=== PATIENT | male | born 1975 | race Caucasian/White ===

== ENCOUNTER 2023-07-18 07:50 | Outpatient (CLI) | payer OTHER, SELFPAY ==
--- NOTE | ~2023-07-18 | XR_ITS ---
Left foot Technique: AP, oblique, and lateral views were obtained. Clinical History: Pain Findings: No acute fracture or dislocation is seen. There is mild degenerative change of the first MT P joint. Remaining joint spaces are preserved. Soft tissues are unremarkable. Impression: Mild degenerative change of the first MTP joint. Reviewed, dictated and finalized at [facility]. RTER LAUNDRY Impression: Mild degenerative change of the first MTP joint.
== END 2023-07-18 07:51 | disposition home or self-care (01) ==
LOC: CHSIMG 07:53
PROVIDERS: Visit Provider Orthopaedic Surgery
DX: M79.672 Pain in left foot (principal)
CPT/HCPCS: 73630

== ENCOUNTER 2023-12-02 01:49 | Day surgery (SDC) | payer OTHER, SELFPAY ==
[2023-11-17 08:34] VITALS: BMI 29.0
[2023-12-02 10:21] VITALS: BP 125/86; PULSE 82; RESP 16; TEMP 36.3; O2SAT 97
[2023-12-02] MEDS: LACTATED RINGERS 1,000 ML 150 ML IV CONT (10:31)
--- NOTE | 2023-12-02 11:29 | P.PNAN_ITS ---
Anes - Initial Pre Proc Eval Procedure: Operation Date: 12/02/23 11:30 Proposed Procedures p Screening Colonoscopy - Nato Stacy MD Date/Time: 12/02/23 11:29 Surgeon: Nato Stacy MD Pre Op Diagnosis: neoplasm screening Patient Data Age: 48 Gender: M Height: 1.83 m Weight: 93 kg Last Vital Signs Temp 97.4 F L 12/02/23 10:21 Pulse 82 12/02/23 10:21 Resp 16 12/02/23 10:21 BP 125/86 12/02/23 10:21 Pulse Ox 97 12/02/23 10:21 O2 Del Method Room Air 12/02/23 10:21 Allergies Allergy/AdvReac Type Severity Reaction Status Date / Time No Known Allergies Allergy Unknown Verified 12/02/23 10:20 Home Medications Medication Instructions Recorded Confirmed Type lisinopril 20 mg tablet 20 mg PO DAILY #90 tabs 09/23/23 11/17/23 Rx Patient hx anesthesia problems: none Family hx anesthesia problems: none Results Review: All pre-operative results and documents have been reviewed as part of the pre- operative evaluation. [facility] Past Medical History Medical History Abnormal liver enzymes Abnormal liver function tests Essential (primary) hypertension Mixed hyperlipidemia Plantar fascial fibromatosis of left foot Prediabetes Family History Family History Other Diabetes mellitus Family history of cardiovascular disease Hypertension Social History Social History (Updated 09/23/23 @ 16:22 by Sabina Velasquez MA) Smoking status: Never smoker Alcohol intake: current Alcohol use details: Weekends Substance use: never Substance use type: does not use Do You Feel Safe in your Home?: Yes Lack of Transportation: No Lack of Food: Never True Current Housing: I Have Housing Concerned About Future Housing: No Difficulty Paying Gas/Electric Bills: No Difficulty Paying for Meds: No Currently Unemployed: No Education: Associate Degree Living arrangements: with family Occupation/Education: occupation Gender identity (if verbalized by the patient): Male Sexual Orientation (if Verbalized by the Patient): Straight or Heterosexual Spiritual care concerns: No Anes - Eval Final PreProcedure Day of Procedure 12/02/23 11:29 Patient weight: normal Heart: regular rate and rhythm Lungs: clear to auscultation Airway: Mallampati scale class II Neurological: alert and oriented Last oral intake: >/= 8 hours ASA classification: III Emergent: no Anesthetic plan: proceed Anesthesia type and monitoring: general GIVS and standard monitoring Results Review: All pre-operative results and documents have been reviewed as part of the pre- operative evaluation. Informed Consent: The patient's anesthetic plan and its attendant risks and benefits were discussed with the patient/family/POA. Questions were solicited and answers provided to the satisfaction of the patient/family/POA.
--- NOTE | 2023-12-02 11:40 | PM.HPGS ---
History of Present Illness History of Present Illness Consent: Risks, benefits, and alternatives have been discussed and questions answered. Patient agrees to proceed with procedure. Chief complaint: neoplasm screening Narrative: Fabrizio Welch is a 48 year old male here for first screening colonoscopy Review of Systems Review of Systems: All systems reviewed & are unremarkable except as noted in HPI and below PMFSH Past Medical History Medical History (Updated 12/02/23 @ 11:40 by Nato Stacy MD) Abnormal liver enzymes Abnormal liver function tests Colon cancer screening Essential (primary) hypertension Mixed hyperlipidemia Plantar fascial fibromatosis of left foot Prediabetes Family History Family History Other Diabetes mellitus Family history of cardiovascular disease Hypertension Social History Social History (Updated 09/23/23 @ 16:22 by Sabina Velasquez MA) Smoking status: Never smoker Alcohol intake: current Alcohol use details: Weekends Substance use: never Substance use type: does not use Do You Feel Safe in your Home?: Yes Lack of Transportation: No Lack of Food: Never True Current Housing: I Have Housing Concerned About Future Housing: No Difficulty Paying Gas/Electric Bills: No Difficulty Paying for Meds: No Currently Unemployed: No Education: Associate Degree Living arrangements: with family Occupation/Education: occupation Gender identity (if verbalized by the patient): Male Sexual Orientation (if Verbalized by the Patient): Straight or Heterosexual Spiritual care concerns: No Meds Home Medications and Allergies Home Medications Medication Instructions Recorded Confirmed Type lisinopril 20 mg tablet 20 mg PO DAILY #90 tabs 09/23/23 11/17/23 Rx Allergies Allergy/AdvReac Type Severity Reaction Status Date / Time No Known Allergies Allergy Unknown Verified 12/02/23 10:20 Vital Signs Vital Signs - 24 hr 12/02/23 10:21 Temperature 97.4 F L Pulse Rate 82 Respiratory Rate 16 Blood Pressure 125/86 Pulse Oximetry 97 Oxygen Delivery Room Air Exam Const: General: comfortable and no acute distress HENMT: Face/Nose/Sinus: Normal nares present Eyes: General: appearance normal, both eyes and all related structures Neck: Neck: no JVD Resp: Auscultation: clear to auscultation bilaterally Cardio: Rate: regular rate Rhythm: regular rhythm GI: Inspection: non-distended GI Palp: Yes Soft to palpation Skin: General skin exam: normal color Neuro: General: gait normal Speech: normal speech Extrem: General: normal to inspection Psych: Mental Status: mental status grossly normal Assessment and Plan Assessment and plan (1) Colon cancer screening: Code(s): Z12.11 - Encounter for screening for malignant neoplasm of colon Status: Acute Assessment and Plan: colonoscopy
[2023-12-02 11:57] VITALS: BP 106/73; PULSE 88; RESP 13; O2SAT 98
[2023-12-02 12:07] VITALS: BP 106/78; PULSE 76; RESP 16; O2SAT 97
[2023-12-02 12:17] VITALS: BP 116/85; PULSE 70; RESP 17; O2SAT 97
== END 2023-12-02 12:19 | disposition home or self-care (01) ==
PROVIDERS: PCP Family Medicine; Visit Provider Internal Medicine Gastroenterology
PROC: 0DJD8ZZ Inspection of Lower Intestinal Tract, Via Natural or Artificial Opening Endoscopic (ICD-10-PCS; CPT 45378; principal; 2023-12-02 11:30)
DX: Z12.11 Encounter for screening for malignant neoplasm of colon (principal); K63.5 Polyp of colon; K64.8 Other hemorrhoids; I10 Essential (primary) hypertension
CPT/HCPCS: 45385; 88305; J2704; J7120

== ENCOUNTER 2025-01-21 21:40 | Emergency (ER) | payer OTHER, SELFPAY ==
--- NOTE | ~2025-01-21 | CT_ITS ---
CLINICAL INDICATION: Periumbilical pain COMPARISON: None. TECHNIQUE: Multiple contiguous axial images of the abdomen and pelvis were performed following the ad ministration of with 100 mL Omnipaque-350 intravenous contrast The dose-length product (DLP) was 569.78 mGy-cm. Automated exposure control and iterative reconstruction technique were employed. FINDINGS/OBSERVATIONS: Visualized lower thorax: The bilateral lung bases are clear. The heart is of normal size, without pericardial effusion. Small hiatal hernia is present. Liver: The liver demonstrates homogeneous enhancement and is not enlarged. Gallbladder and biliary system: The gallbladder is only minimally distended, and otherwise unremarkable. Pancreas: The pancreas enhances homogeneously without ductal dilatation. Spleen: The spleen enhances homogeneously and is not enlarged . Kidneys: The bilateral kidneys enhance symmetrically without hydronephrosis or renal calculi. Adrenal glands: Unremarkable. Gastrointestinal tract: Fecal stasis within the colon. Appendix: The appendix is fluid-filled, and hyperemic with surrounding inflammatory change. The caliber of the appendix is increased measuring 12 mm. No free fluid or free air is identified. Vasculature: Unremarkable. Lymph nodes: No pathologically enlarged or morphologically suspicious lymph nodes within the retroperitoneum or at the root of the mesentery. Pelvic structures: The bladder is only minimally distended, and otherwise unremarkable. The prostate gland is not enlarged. Body wall and musculoskeletal: No significant degenerative disease within the lower thoracic or lumbosacral spine. IMPRESSION: Acute appendicitis without perforation. Reviewed, dictated and finalized at location A.
[2025-01-21 21:42] VITALS: BP 158/100; PULSE 94; RESP 18; TEMP 36.7; O2SAT 100
--- NOTE | 2025-01-21 21:42 | PC.NURSE ---
Pt triaged in waiting room, VSS pt c/o abd pain w/ severe n/v that started about 5 pm tonight.
[2025-01-21] MEDS: ONDANSETRON INJ 4 MG/2 ML VIAL IV PUSH (22:19)
[2025-01-21] MEDS: MORPHINE SULFATE (*CRX) 2 MG/ML INJ IV PUSH (22:19)
[2025-01-21] MEDS: SODIUM CHLORIDE 0.9% IV 1,000 ML 999 ML IV CONT (22:23)
[2025-01-21 22:26] VITALS: O2SAT 98
[2025-01-21 22:26] LABS: Basophils Absolute Auto 0.02 K/mm3 (0.00-0.10); Basophils Percent Auto 0.2 % (0.0-1.0); Eosinophils Absolute Auto 0.01 K/mm3 (0.02-0.50); Eosinophils Percent Auto 0.1 % (1.0-6.0); Hematocrit 51.9 % (40.0-54.0); Hemoglobin 18.4 g/dL (14.0-18.0); Immature Granulocyte Absolute 0.05 K/mm3 (0.00-0.00); Immature Granulocyte Percent A 0.4 % (0.0-0.0); Lymphocytes Absolute Auto 0.85 K/mm3 (1.10-4.50); Lymphocytes Percent Auto 6.4 % (18.0-42.0); Mean Corpuscular HGB Conc 35.5 g/dL (32-36); Mean Corpuscular Hemoglobin 31.2 pg (27.0-31.0); Mean Platelet Volume 9.5 fl (8.7-11.0); Neutrophils Absolute Auto 11.94 K/mm3 (1.70-7.20); Neutrophils Percent Auto 89.9 % (50.0-70.0); Platelet Count Result 245 K/mm3 (150-420); Red Cell Distribution Width 11.7 % (11.6-14.4); White Blood Count 13.3 K/mm3 (4.8-10.8)
[2025-01-21 22:30] VITALS: O2SAT 96
[2025-01-21 22:31] VITALS: BP 169/93; O2SAT 95
[2025-01-21 22:38] LABS: Alanine Aminotransferase 29 U/L (6-50); Albumin Level 4.6 g/dL (3.5-5.1); Alkaline Phosphatase 67 U/L (38-126); Anion Gap 10 mmol/L (4-12); Aspartate Amino Transferase 30 U/L (17-59); Bilirubin,Total 1.9 mg/dL (0.2-1.3); Blood Urea Nitrogen 13 mg/dL (9-20); Calcium 9.9 mg/dL (8.4-10.2); Carbon Dioxide 23 mmol/L (22-30); Chloride 103 mmol/L (98-107); Estimated CRCL calculation 87 ml/min; Estimated Glomerular Filt Rate > 60; Glucose 148 mg/dL (65-110); Lipase 166 U/L (23-300); Osmolality Calculated 285 mOsm/kg (285-295); Potassium 3.6 mmol/L (3.4-5.0); Sodium 136 mmol/L (137-145); Total Protein 7.5 g/dL (6.3-8.2)
[2025-01-21 22:39] LABS: Lactic Acid Reflex 2.1 mmol/L (0.4-2.0)
[2025-01-21 22:40] LABS: Partial Thromboplastin Time 25.9 Sec (23.9-30.70)
[2025-01-21 23:07] VITALS: BP 180/89; PULSE 88; RESP 20; O2SAT 94
[2025-01-21 23:16] VITALS: BP 166/84; O2SAT 97
--- NOTE | 2025-01-21 23:51 | PC.NURSE ---
Pt resting comfortable at this time, he reports no pain anymore and feeling better. Dr Nazario in to discuss POC for transfer about CT report results.
--- NOTE | 2025-01-21 23:55 | ED.ABDPAIN ---
HPI - Abdominal Pain General Chief Complaint: Abdominal Pain Stated Complaint: Vomiting Time Seen by Provider: 01/21/25 21:55 Source: patient and family Mode of arrival: ambulatory Limitations: no limitations History of Present Illness HPI narrative: patient is a 49-year-old male with right lower quadrant pain for the past day and specifically the past few hours since about 5:00 p.m.. He has associated nausea vomiting. No diarrhea. He has no prior surgeries of the abdomen. last meal was at 5:00 p.m.. patient is on Ozempic without recent changes. MD elicited complaint: abdominal pain Pertinent past history: other ( Hypertension) Onset (ago): hour(s) ( 5) Pain Consistency: constant Location: epigastric, periumbilical and RLQ Severity: severe Pain scale (0-10): 10 Quality: sharp Radiation: none Migration to: no migration Exacerbating factors: movement Relieving factors: nothing Context: confirms other ( patient is here with right lower quadrant and mid abdomen pain for the past 5 hours) Associated symptoms: nausea and vomiting Treatments prior to arrival: other ( none) Related Data Home Medications ?Medication ?Instructions ?Recorded ?Confirmed ?Last Taken ?Type lfqjhrak-huc-gfdtw acid 200 tablet PO DAILY 09/24/24 09/24/24 Unknown History mcg-vit K1 60 mcg-lycopene 600 mcg tablet (Men's Multivitamin) omega 0-oqy-dug-fish oil 1,000 mg 1 cap PO DAILY 09/24/24 09/24/24 Unknown History (120 mg-180 mg) capsule (Fish Oil) semaglutide 1 ml subcut .once a week 09/24/24 Unknown History testosterone cypionate 100 mg/mL 35 mg IM .twice a week 09/24/24 09/24/24 Unknown History intramuscular oil (Depo-Testosterone) Allergies Allergy/AdvReac Type Severity Reaction Status Date / Time No Known Allergies Allergy Unknown Verified 09/24/24 15:04 Review of Systems Review of Systems: All systems reviewed & are unremarkable except as noted in HPI and below Constitutional: Constitutional: Reports no additional constitutional complaints Eyes: Eyes: Reports no additional eye complaints ENT: Reports system reviewed and no additional complaints, except as documented Cardiovascular: Cardiovascular: Reports no additional cardiovascular complaints Respiratory: Respiratory: Reports no additional respiratory complaints Gastrointestinal: Gastrointestinal: Reports no additional gastrointestinal complaints Genitourinary: Genitourinary: Reports no additional male genitourinary complaints Musculoskeletal: Musculoskeletal: Reports no additional musculoskeletal complaints Integumentary/Breasts: Skin/Breast: Reports system reviewed and no additional complaints, except as docu Neurologic: Reports system reviewed and no additional complaints, except as documented Psychiatric: Psychiatric: Reports no additional psychiatric complaints Endocrine: Endocrine: Reports no additional endocrine complaints Hematologic/Lymphatic: Hematologic/Lymphatic: Reports no additional hematologic/lymphatic complaints Allergic/Immunologic: Allergic/Immunologic: Reports no additional allergic/immunologic complaints [facility] Past Medical History Medical History Personal history of colonic polyps Plantar fascial fibromatosis of left foot Abnormal liver function tests Abnormal liver enzymes Prediabetes Mixed hyperlipidemia Essential (primary) hypertension Family History Family History Other Diabetes mellitus Family history of cardiovascular disease Hypertension Social History Social History Smoking status: Never smoker Alcohol intake: current Alcohol use details: Weekends Substance use: never Substance use type: does not use Do You Feel Safe in your Home?: Yes Lack of Transportation: No Lack of Food: Never True Current Housing: I Have Housing Concerned About Future Housing: No Difficulty Paying Gas/Electric Bills: No Difficulty Paying for Meds: No Currently Unemployed: No Education: Associate Degree Living arrangements: with family Occupation/Education: occupation Gender identity (if verbalized by the patient): Male Sexual Orientation (if Verbalized by the Patient): Straight or Heterosexual Spiritual care concerns: No Exam Const: General: ill appearing Nutritional Appearance: well nourished Orientation/consciousness: patient oriented x3 Limitations: no limitations Other: Pale and acute pain HENMT: Head: normal to inspection Ears: external ears normal Face/Nose/Sinus: Normal external nose present Eyes: Conjunctivae: conjunctivae normal Pupils: Equal, round and reactive pupils present EOM: EOMs intact bilaterally Neck: Neck: normal visual inspection Chest: Chest palpation & inspection: normal inspection of the chest Resp: Effort & Inspection: normal respiratory effort and not labored Auscultation: clear to auscultation bilaterally and no crackles Cardio: Rate: regular rate Rhythm: regular rhythm Heart sounds: no murmurs GI: Inspection: non-distended GI Palp: Yes Soft to palpation, Yes Tenderness to palpation present (GI) ( diffuse but specifically midline and right lower quadrant to rebound), Yes Guarding due to palpation present (GI), No Rigid due to palpation, No Hernia present, No Palpable mass present and Yes Rebound tenderness present Auscultation: normal bowel sounds : General: Yes bladder normal to palpation Back/Spine/Pelvis: Back: no CVA tenderness Skin: General skin exam: normal color Rashes: no rashes Wounds: no wounds Neuro: General: patient oriented x3 Cranial nerves: Yes Nystagmus not present Speech: normal speech Gait exam (Neuro): Normal gait present Extrem: General: normal to inspection Psych: Mental Status: mental status grossly normal Affect: normal affect Attitude: cooperative Course Vital Signs Vital signs: Vital Signs Temperature 36.7 C 01/21/25 21:42 Pulse Rate 94 01/21/25 21:42 Respiratory Rate 18 01/21/25 21:42 Blood Pressure 158/100 H 01/21/25 21:42 Pulse Oximetry 100 01/21/25 21:42 Oxygen Delivery Room Air 01/21/25 21:42 Temperature 36.7 C 01/21/25 21:42 Pulse Rate 88 01/21/25 23:07 Respiratory Rate 20 01/21/25 23:07 Blood Pressure 166/84 H 01/21/25 23:16 Pulse Oximetry 97 01/21/25 23:16 Oxygen Delivery Room Air 01/21/25 21:42 MDM - Abdominal Pain MDM Narrative Medical decision making narrative: patient is a 49-year-old male with right lower quadrant and diffuse abdominal pain for the past [address] We will do CT scan and labs at this time. Final picture shows appendicitis. We will transfer for higher level care with surgery. Lab Data Attestation: I reviewed the patient's lab results. 01/21/25 22:22 01/21/25 22:22 Labs: Lab Results 01/21/25 Range/Units 22:22 WBC 13.3 H (4.8-10.8) K/mm3 RBC 5.90 (4.70-6.10) M/mm3 Hgb 18.4 H (14.0-18.0) g/dL Hct 51.9 (40.0-54.0) % MCV 88.0 (78.0-102.0) fL MCH 31.2 H (27.0-31.0) pg MCHC 35.5 (32-36) g/dL RDW 11.7 (11.6-14.4) % Plt Count 245 (150-420) K/mm3 MPV 9.5 (8.7-11.0) fl Immature Gran % (Auto) 0.4 H (0.0-0.0) % Neut % (Auto) 89.9 H (50.0-70.0) % Lymph % (Auto) 6.4 L (18.0-42.0) % [place] % (Auto) 3.0 (2.0-11.0) % Eos % (Auto) 0.1 L (1.0-6.0) % Baso % (Auto) 0.2 (0.0-1.0) % Lymph # (Auto) 0.85 L (1.10-4.50) K/mm3 [place] # (Auto) 0.40 (0.10-0.90) K/mm3 Eos # (Auto) 0.01 L (0.02-0.50) K/mm3 Baso # (Auto) 0.02 (0.00-0.10) K/mm3 Abs Immat Gran (auto) 0.05 H (0.00-0.00) K/mm3 Absolute Neuts (auto) 11.94 H (1.70-7.20) K/mm3 Absolute Nucleated RBC 0.00 (0.00-0.00) K/mm3 Nucleated RBC % 0.0 (0-0.0) % PT 11.0 (9.50-12.1) Seconds INR 1.0 APTT 25.9 (23.9-30.70) Sec Sodium 136 L (137-145) mmol/L Potassium 3.6 (3.4-5.0) mmol/L Chloride 103 (98-107) mmol/L Carbon Dioxide 23 (22-30) mmol/L Anion Gap 10 (4-12) mmol/L BUN 13 (9-20) mg/dL Creatinine 0.97 (0.7-1.3) mg/dL Estim Creat Clear Calc 87 ml/min Estimated GFR > 60 (59 - ) Glucose 148 H (65-110) mg/dL Calculated Osmolality 285 (285-295) mOsm/kg Lactic Acid 2.1 H (0.4-2.0) mmol/L Calcium 9.9 (8.4-10.2) mg/dL Total Bilirubin 1.9 H (0.2-1.3) mg/dL AST 30 (17-59) U/L ALT 29 (6-50) U/L Alkaline Phosphatase 67 (38-126) U/L Total Protein 7.5 (6.3-8.2) g/dL Albumin 4.6 (3.5-5.1) g/dL Lipase 166 (23-300) U/L Imaging Data Attestation: I personally reviewed and interpreted this imaging study as follows: Radiologist's impression: ITS Impressions Abdomen/Pelvis CT 01/21/25 23:43 IMPRESSION: Acute appendicitis without perforation. Discharge Plan Discharge Clinical Impression: Acute appendicitis Qualifiers: Acute appendicitis type: unspecified acute appendicitis type Qualified Code(s): K35.80 - Unspecified acute appendicitis Patient Disposition: Acute Care Hospital Condition: Stable Patient Language: Bahamian Prescriptions: No Action semaglutide 1 ml subcut .once a week testosterone cypionate [Depo-Testosterone] 100 mg/mL oil 35 mg IM .twice a week Rx Instructions: as a single dose omega 3-dye-jhw-fish oil [Fish Oil] 1,000 (120-180) mg capsule 1 cap PO DAILY Men's Multivitamin 200-60-600 mcg tablet PO DAILY lisinopril 20 mg tablet 20 mg PO DAILY Qty: 90 1RF Follow-up/Referrals: Forrest Payne MD [Primary Care Provider] - Time of Disposition: 00:02
[2025-01-22 00:25] LABS: Reflex Lactic Acid Yes or No Add Lactic
[2025-01-22] MEDS: MORPHINE SULFATE (*CRX) 2 MG/ML INJ IV PUSH (00:36)
[2025-01-22 01:28] VITALS: BP 156/65; PULSE 90; RESP 20; TEMP 36.6; O2SAT 98
--- NOTE | 2025-01-24 12:38 | PC.NURSE ---
PRELIMINARY BLOOD CULTURE NO GROWTH TO DATE
--- NOTE | 2025-01-26 14:08 | PC.NURSE ---
preliminary blood cultures x2 reviewed. no growth to date
--- NOTE | 2025-01-28 12:55 | PC.NURSE ---
blood culture, no growth. final
--- NOTE | 2025-01-30 14:39 | PC.NURSE ---
final blood cultures x2 reviewed. no growth after 5 days. no change in plan of care.
== END 2025-01-22 01:28 | disposition short-term general hospital (02) ==
PROVIDERS: Emergency Provider Emergency Medicine; PCP Family Medicine
DX: K35.80 Unspecified acute appendicitis (principal); I10 Essential (primary) hypertension; E78.2 Mixed hyperlipidemia
CPT/HCPCS: 36415; 74177; 80053; 83605; 83690; 85025; 85610; 85730; 87040; 96361; 96374; 96375; 99285; J2270; J2405; J7030; Q9967

== ENCOUNTER 2025-01-22 01:10 | Observation (INO) | payer OTHER, SELFPAY ==
[2025-01-22] VITALS (9 sets, daily range): BP systolic 113–146; BP diastolic 76–89; PULSE 81–97; RESP 12–18; TEMP 36.4–37.4; O2SAT 96–100; BMI 26.8
[2025-01-22] MEDS: SODIUM CHLORIDE 0.9% IV 1,000 ML 100 ML IV CONT (02:26)
[2025-01-22] MEDS: PIPERACILLN/TAZ 3.375GM/NS50ML 3.375 GM/50 ML BAG IVPB ×2 (02:27→08:06)
--- NOTE | 2025-01-22 02:36 | ADMGEN ---
This patient, Fabrizio Welch, was admitted to Medical Room 256-. Patient/family oriented to hospital policies and general routines including ID bracelet, bed and alarms, visiting hours, pain management, procedures, bathroom and other care routines, personal items, smoking policy, room service/diet, and visiting hours. Information on how to activate the Rapid Response Team has been discussed. Patient/Family are encouraged to report perceived risks to care and to ask questions if they do not understand what they are told or what they should do.
[2025-01-22] MEDS: MORPHINE SULFATE (*CRX) 2 MG/ML INJ IV PUSH ×2 (03:06→08:04)
--- NOTE | 2025-01-22 08:57 | P.HP_ITS ---
H&P: HPI History of Present Illness Date/Time: 01/22/25 08:57 Chief Complaint: RLQ abdominal pain Narrative: This is a 49 yo man with history of prediabetes and HTN, who presented to [facility] last night with complaints of RLQ abdominal pain x 5 hours. He had an onset of periumbilical pain and nausea around 5 pm yesterday. He felt like he had an upset stomach. He eventually vomited about 3 times and did have some relief. His pain then localized to the RLQ and was aggravated by movement. He couldn't get comfortable in any position. He then went to the ED for evaluation. Workup in the ED showed leukocytosis and CT evidence of acute uncomplicated appendicitis. He was transferred to [facility] for surgical evaluation. No previous abdominal surgery. No pain like this in the past. He is taking alejandra aglutide for prediabetes and has lost about 15 lbs since September with his last injection taken yesterday. Review of Systems Review of Systems: All systems reviewed & are unremarkable except as noted in HPI and below PMFSH Past Medical History Medical History Personal history of colonic polyps Plantar fascial fibromatosis of left foot Abnormal liver function tests Abnormal liver enzymes Prediabetes Mixed hyperlipidemia Essential (primary) hypertension Surgical History Surgical History History of ankle surgery Family History Family History Other Diabetes mellitus Family history of cardiovascular disease Hypertension Social History Social History Smoking status: Never smoker Alcohol intake: current Drinks per week: 2 Alcohol use details: Weekends Substance use: never Substance use type: does not use Do You Feel Safe in your Home?: Yes Lack of Transportation: No Lack of Food: Never True Current Housing: I Have Housing Concerned About Future Housing: No Difficulty Paying Gas/Electric Bills: No Difficulty Paying for Meds: No Currently Unemployed: No Education: Associate Degree Difficulty w/ Childcare or Family Care: No Living arrangements: with family Occupation/Education: occupation Gender identity (if verbalized by the patient): Male Sexual Orientation (if Verbalized by the Patient): Straight or Heterosexual Spiritual care concerns: No Meds Home Medications and Allergies Home Medications ?Medication ?Instructions ?Recorded ?Confirmed ?Type wbkhgidv-lgi-hpdem acid 200 1 tablet PO DAILY 09/24/24 01/22/25 History mcg-vit K1 60 mcg-lycopene 600 mcg tablet (Men's Multivitamin) omega 0-ekn-xgp-fish oil 1,000 mg 1 cap PO DAILY 09/24/24 01/22/25 History (120 mg-180 mg) capsule (Fish Oil) semaglutide 1 ml subcut .once a week 09/24/24 01/22/25 History testosterone cypionate 100 mg/mL 35 mg IM .twice a week 09/24/24 01/22/25 History intramuscular oil (Depo-Testosterone) lisinopril 20 mg tablet 20 mg PO DAILY #90 tabs 12/05/24 01/22/25 Rx Allergies Allergy/AdvReac Type Severity Reaction Status Date / Time No Known Allergies Allergy Unknown Verified 09/24/24 15:04 Vital Signs Vital Signs - 24 hr 01/22/25 02:40 01/22/25 03:15 01/22/25 06:00 Temperature 98.2 F 98.1 F Pulse Rate 81 81 81 Respiratory Rate 16 16 16 Blood Pressure 146/86 H 130/81 Pulse Oximetry 99 99 99 Oxygen Delivery Room Air 01/22/25 08:00 Temperature Pulse Rate Respiratory Rate Blood Pressure Pulse Oximetry 100 Oxygen Delivery Room Air Exam Const: General: comfortable and no acute distress Nutritional Appearance: average body habitus Orientation/consciousness: patient oriented x3 HENMT: Head: normocephalic and atraumatic Ears: hearing grossly normal bilaterally Mouth: Yes moist mucous membranes Eyes: General: appearance normal, both eyes and all related structures Pupils: Equal, round and reactive pupils present Neck: Neck: normal visual inspection and full ROM Resp: Effort & Inspection: no respiratory distress Auscultation: clear to auscultation bilaterally Cardio: Rate: regular rate Rhythm: regular rhythm Peripheral pulses: Peripheral pulses 2+ throughout GI: Inspection: non-distended and no scars GI Palp: Yes Soft to palpation, Yes Tenderness to palpation present (GI) (focal RLQ tenderness), No Guarding due to palpation present (GI), Yes No hepatosplenomegaly present and No Rebound tenderness present Auscultation: normal bowel sounds Skin: General skin exam: normal color Neuro: General: moves all extremities and no focal motor deficits Speech: normal speech Motor exam (neuro): 5/5 motor strength present throughout Extrem: General: normal to inspection and no edema Psych: Mental Status: mental status grossly normal Attitude: cooperative Insight: Good insight present (Psych) Judgement: Good judgement present ( Psych) Assessment and Plan Assessment and plan (1) Acute appendicitis: Qualifiers: Acute appendicitis type: unspecified acute appendicitis type Qualified Code(s): K35.80 - Unspecified acute appendicitis Code(s): K35.80 - Unspecified acute appendicitis Status: Acute Assessment and Plan: * CT showed evidence of acute appendicitis, no perforation or abscess. We discussed both nonoperative treatment with IV antibiotics/monitoring versus proceeding with surgery. We discussed the risks of recurrence or treatment failure with the option of antibiotic therapy. I also discussed the details of a laparoscopic appendectomy, possible open, under general anesthesia that would be done by Dr. Arredondo. Description of the procedure, risks, benefits, alternatives, and expected recovery were discussed. He wishes to proceed with surgery. Keep NPO and continue IV antibiotics, IV fluids, and analgesics as needed pre-operatively. Will proceed to OR for urgent appendectomy today. (2) Prediabetes: Code(s): R73.03 - Prediabetes Status: Acute Assessment and Plan: * Started semaglutide in September. To note, he did have his last injection yesterday morning and this medication comes with the effect of delayed gastric emptying. (3) Essential (primary) hypertension: Code(s): I10 - Essential (primary) hypertension Status: Acute Assessment and Plan: * Resume home medication after surgery. BP stable Plan I have discussed the patient's case and plan of care with Dr. Arredondo.
--- NOTE | 2025-01-22 11:14 | P.PNAN_ITS ---
Anes - Initial Pre Proc Eval Procedure: Operation Date: 01/22/25 15:00 Proposed Procedures p Laparoscopic Appendectomy - Yudith Arredondo MD Date/Time: 01/22/25 11:14 Surgeon: Yudith Arredondo MD Pre Op Diagnosis: Appendicitis Patient Data Age: 49 Gender: M Height: 1.83 m Weight: 89.7 kg Last Vital Signs Temp 36.7 C 01/22/25 06:00 Pulse 81 01/22/25 06:00 Resp 16 01/22/25 06:00 BP 130/81 01/22/25 06:00 Pulse Ox 100 01/22/25 08:00 O2 Del Method Room Air 01/22/25 08:00 Allergies Allergy/AdvReac Type Severity Reaction Status Date / Time No Known Allergies Allergy Unknown Verified 09/24/24 15:04 Home Medications ?Medication ?Instructions ?Recorded ?Confirmed ?Type hllyrmzy-qqn-voubb acid 200 1 tablet PO DAILY 09/24/24 01/22/25 History mcg-vit K1 60 mcg-lycopene 600 mcg tablet (Men's Multivitamin) omega 3-xhu-tnk-fish oil 1,000 mg 1 cap PO DAILY 09/24/24 01/22/25 History (120 mg-180 mg) capsule (Fish Oil) semaglutide 1 ml subcut .once a week 09/24/24 01/22/25 History testosterone cypionate 100 mg/mL 35 mg IM .twice a week 09/24/24 01/22/25 History intramuscular oil (Depo-Testosterone) lisinopril 20 mg tablet 20 mg PO DAILY #90 tabs 12/05/24 01/22/25 Rx Patient hx anesthesia problems: post op nausea/vomiting Family hx anesthesia problems: none Results Review: All pre-operative results and documents have been reviewed as part of the pre- operative evaluation. [facility] Past Medical History Medical History Personal history of colonic polyps Plantar fascial fibromatosis of left foot Abnormal liver function tests Abnormal liver enzymes Prediabetes Mixed hyperlipidemia Essential (primary) hypertension Surgical History Surgical History History of ankle surgery Family History Family History Other Diabetes mellitus Family history of cardiovascular disease Hypertension Social History Social History Smoking status: Never smoker Alcohol intake: current Drinks per week: 2 Alcohol use details: Weekends Substance use: never Substance use type: does not use Do You Feel Safe in your Home?: Yes Lack of Transportation: No Lack of Food: Never True Current Housing: I Have Housing Concerned About Future Housing: No Difficulty Paying Gas/Electric Bills: No Difficulty Paying for Meds: No Currently Unemployed: No Education: Associate Degree Difficulty w/ Childcare or Family Care: No Living arrangements: with family Occupation/Education: occupation Gender identity (if verbalized by the patient): Male Sexual Orientation (if Verbalized by the Patient): Straight or Heterosexual Spiritual care concerns: No Anes - Eval Final PreProcedure Day of Procedure 01/22/25 11:14 Patient weight: overweight Heart: regular rate and rhythm Lungs: clear to auscultation Airway: Mallampati scale class II Neurological: alert and oriented Last oral intake: >/= 8 hours ASA classification: III Emergent: no Anesthetic plan: proceed Anesthesia type and monitoring: general ETT and standard monitoring Results Review: All pre-operative results and documents have been reviewed as part of the pre- operative evaluation. Informed Consent: The patient's anesthetic plan and its attendant risks and benefits were discussed with the patient/family/POA. Questions were solicited and answers pro vided to the satisfaction of the patient/family/POA.
[2025-01-22] MEDS: KETOROLAC 15 MG/ML VIAL (*BKC) IV PUSH (11:25)
[2025-01-22] MEDS: LACTATED RINGERS 1,000 ML 30 ML IV CONT ×2 (11:25→12:52)
[2025-01-22] MEDS: ACETAMINOPHEN 500 MG TABLET 1000 MG PO (11:25)
[2025-01-22] MEDS: SCOPOLAMINE 1 MG PATCH 1 PATCH TRANSDERM (11:26)
--- NOTE | 2025-01-22 12:00 | WPDHPUPDATE1 ---
History and Physical Update Update Date/Time: 01/22/25 12:00 History and Physical has been reviewed, including an updated exam of the patient. There are NO changes in the patient's condition. Risks, benefits, and alternatives have been discussed and questions answered. Patient agrees to proceed with procedure.
--- NOTE | 2025-01-22 12:29 | S_PTH ---
PATIENT: Fabrizio Welch LOC: [id number] U#:[id number] AGE/SX: 49/M ROOM: 256 RE01/22/[address]: Yudith Arredondo MD : 1975 BED: 01 DIS: 01/22/2025 SPEC #: [id number] RECD: 01/22/25 13:41 STATUS: SARITHA REQ #: [id number] ANA: 01/22/25 12:[address]: Yudith Arredondo DEPT: [facility] Surgical RECD BY: Tayo Tai ENTERED: 01/22/25 13:41 SP TYPE: Surgical OTHR DR: Forrest Payne MD Tissues: A - Appendix Procedures: Hematoxylin and Eosin Stain Gross and Microscopic Level 3
[2025-01-22] MEDS: BUPIVACAINE/EPINEPHRINE 0.5% 50 ML VIAL 30 ML INFILTRATE (12:30)
--- NOTE | 2025-01-22 12:48 | W.PM.PROC2 ---
Procedure Note - Detailed Date of Procedure 01/22/25 Pre-op Diagnosis Appendicitis Post-op Diagnosis Same Procedure Performed Laparoscopic appendectomy Surgeon Yudith Arredondo MD Anesthesia General Indications 49-year-old male presenting to the emergency department with acute appendicitis Findings Acute uncomplicated appendicitis Description of Procedure The patient was taken to the operating room and placed in the supine position. After adequate induction of general anesthesia, the patient was prepped and draped in the normal sterile fashion. A time-out was then done to verify the patient's identity, as well as the procedure being performed. Began by making a 5 mm incision in the infraumbilical region. Through this a Veress needle was placed in the peritoneal cavity and CO2 gas was insufflated. After adequate pneumoperitoneum was achieved, the Veress needle was removed and a 5 mm port trocar was placed through this incision. I then placed the laparoscopic through this trocar and under direct visualization placed 2 further 5 mm suprapubic port, as well as an additional 12 mm port in the left lower abdomen. At this point, the cecum was identified and retracted both medially and cephalad. This allowed us to expose the appendix. The appendix was noted to be inflamed and injected, however no obvious perforation was noted. I was then able to grasp the tip of the appendix and retract this laterally and anteriorly. This allowed us to expose the base of the appendix with the cecum. At this point I created a window between the appendix and the mesoappendix using a Arlette bisector. Once accomplished, I transected the mesoappendix with a white vascular staple load. The stapler was then re-loaded with a blue thick tissue staple load and this was used to transect the base of the appendix with the cecum. I then placed the appendiceal specimen in an endo-pouch and removed this through the 12 mm port site. The specimen will now be sent to pathology for further review. I then copiously irrigated the right lower quadrant. No other pathology was noted and both staple lines were noted to be intact and hemostatic. I then proceeded to close the fascia of the 12 mm left lower quadrant port site with a Abran cone an 0 Vicryl suture. The abdomen was then desufflated and all ports removed. All port sites were then closed with 4-0 Monocryl subcuticular suture. Dermabond was placed on all wounds. The patient tolerated the procedure well and was extubated postoperatively. He will be transferred to the recovery room in stable condition. Estimated Blood Loss 5 Drains No Packing No Pathology Yes Complications No immediate complications Condition Stable Disposition PACU [facility] Billing Surgery - Charge Forward: Surgery Billing
--- NOTE | 2025-01-23 09:47 | P.DS_ITS ---
DS: Admitting Diagnosis Discharge Date 01/22/25 Admitting Diagnosis Acute appendicitis DS: Discharge Diagnosis Discharge Diagnosis (1) Acute appendicitis: Qualifiers: Acute appendicitis type: unspecified acute appendicitis type Qualified Code(s): K35.80 - Unspecified acute appendicitis Code(s): K35.80 - Unspecified acute appendicitis Status: Acute Assessment and Plan: status post appendectomy, routine postoperative care, home with p.o. analgesia, follow-up 2 weeks DS: Summary Hospital Course Reason for hospitalization: acute appendicitis Hospital Course: 49-year-old male presenting to the emergency department complaining of right lower quadrant abdominal pain. Workup, including imaging, significant for acute appendicitis. Given these findings, the patient was admitted to the surgical service. He was started on IV antibiotics and made NPO. Upon evaluation, the decision was made for urgent appendectomy. The patient was taken to the operating room and laparoscopic appendectomy was performed. Please see full operative report for details of that procedure. Postoperatively, the patient did well was transferred back to the surgical floor. He was able to tolerate a diet and pain was well controlled with p.o. analgesia. He was up and ambulating without difficulty. This time, he will be discharged home with routine postoperative care instructions and p.o. analgesia. He will follow up with me in 2 weeks. Status at Discharge Functional status at discharge: independent ambulation Overall status at discharge: patient is progressing back to baseline Time Spent with Patient Time attestation: Total time spent providing and/or coordinating discharge services: Time spent: Less than 30 minutes Exam Const: General: cooperative, comfortable and no acute distress Resp: Auscultation: clear to auscultation bilaterally Cardio: Rate: regular rate Rhythm: regular rhythm GI: Inspection: normal to inspection, distended and incision GI Palp: Yes abdominal tenderness, Yes Soft to palpation, No Guarding due to palpation present (GI) and No Rigid due to palpation DS: Data Data Completed and Pending Pending studies at discharge: Pending at discharge 01/22/25 12:29 Surgical [PTH] Routine Discharge Plan Discharge Attending physician on discharge: Yudith Arredondo Consulting providers: Varsha Fernandez; Brien Alonso; Estefany Daugherty Discharging Clinician: Yudith Arredondo Anticipated Discharge Date/Time: 01/22/25 16:00 Patient Disposition: Home Activity: may shower and as tolerated Diet: as tolerated Wound Care Instructions: incision open to air Discharge Instructions: DISCHARGE INSTRUCTION SHEET FOR HERNIA, GALLBLADDER AND APPENDIX SURGERIES DR. ARREDONDO PATIENT TO TAKE HOME 1. May shower in 24 hours, no soaking in bath x 2weeks. 2. Call office for: * Wound increasingly painful or bleeding * Vomiting * Fever of greater than 101 degrees 3. If no bowel movement for three days, take 1 oz. (30 ml) Milk of Magnesia or MiraLax 17g 1 to 2 times daily. 4. No heavy lifting > 10-15 pounds x 6 weeks for hernia repairs and 2 weeks for laparoscopic cholecystectomy or appendectomy. 5. No driving for 3 days or while taking narcotic pain medications. 6. Ice to surgical site for 48 hours (30 min on, then 30 min off). 7. Up walking 10-30 minutes three times per day. 8. Resume previous home medications. 9. Follow-up 10-14 days in office for wound check or as previously scheduled. ([phone]) 10. Oral pain medications prescription to be sent to pharmacy. Take Tylenol 500mg every 6 hours and Ibuprofen 600mg every 6 hours for the first 2 days, then as needed. 11. NUTRITION: Start out by drinking fluids and increase your diet as tolerated. If you experience nausea, try dry toast, crackers, and 7-UP. If nausea or vomiting persists, contact your surgeon?s office. 12. Gallbladders-Low Fat Diet for 2 weeks (send care note of low fat diet) 13. Inguinal Hernias-wear scrotal support for 48 hours 14. Abdominal Hernias-if sent home with abdominal binder, wear for the first 2 weeks (may remove to shower or at night to sleep). Revised 08/2020 Patient Instructions: Antibiotic Form Patient Language: Kyrgyz Stand Alone Forms: General Discharge Information Follow-up/Referrals: Yudith Arredondo MD [Physician] - 2 Weeks Discharge Medications: New hydrocodone-acetaminophen 5-325 mg tablet 1 tablet PO Q6H PRN (Reason: pain) Qty: 20 0RF docusate sodium [Colace] 100 mg capsule 100 mg PO BID Qty: 20 0RF Continued semaglutide 1 ml subcut .once a week testosterone cypionate [Depo-Testosterone] 100 mg/mL oil 35 mg IM .twice a week Rx Instructions: as a single dose omega 2-ykp-snp-fish oil [Fish Oil] 1,000 (120-180) mg capsule 1 cap PO DAILY Men's Multivitamin 200-60-600 mcg tablet 1 tablet PO DAILY lisinopril 20 mg tablet 20 mg PO DAILY Qty: 90 1RF Date of admission: 01/22/25 01:10 Primary Care Provider: Forrest Payne Admitting Provider: Yudith Arredondo Attending physician on admission: Yudith Arredondo Condition: Stable
== END 2025-01-22 18:24 | disposition home or self-care (01) ==
PROVIDERS: Admitting Provider Surgery; PCP Family Medicine; Visit Provider Surgery
PROC: 0DTJ4ZZ Resection of Appendix, Percutaneous Endoscopic Approach (ICD-10-PCS; CPT 44970; principal; 2025-01-22 15:00)
DX: K35.80 Unspecified acute appendicitis (principal); K36 Other appendicitis; R73.03 Prediabetes; I10 Essential (primary) hypertension; E78.2 Mixed hyperlipidemia; Z79.899 Other long term (current) drug therapy; Z86.0100 Personal history of colon polyps, unspecified
CPT/HCPCS: 44970; 88304; 96365; 96375; 96376; A9270; G0378; J0330; J1171; J1885; J2003; J2250; J2270; J2405; J2543; J2704; J3010; J7030; J7120

== ENCOUNTER 2025-05-26 16:52 | Emergency (ER) | payer OTHER, SELFPAY ==
[2025-05-26 16:59] VITALS: BP 138/93; PULSE 89; RESP 16; TEMP 36.6; O2SAT 100
--- NOTE | 2025-05-26 17:04 | ED.GENADULT ---
HPI - General Adult General Chief complaint: Eye Problems Stated complaint: Eye Irritation Time Seen by Provider: 05/26/25 17:05 Source: patient Mode of arrival: ambulatory Limitations: no limitations History of Present Illness HPI narrative: 49-year-old male patient presents to the [facility] with complaints of right eye irritation. Patient states he was walking along accidentally hit a branch and treat. Patient states he does have some blood noted to the right eye. Denies any vision changes or sensitivity. Denies any sensitivity to light or itchy. Related Data Home Medications ?Medication ?Instructions ?Recorded ?Confirmed ?Last Taken ?Type nksvnetp-pnj-extxi acid 200 1 tablet PO DAILY 09/24/24 05/08/25 01/21/25 History mcg-vit K1 60 mcg-lycopene 600 mcg tablet (Men's Multivitamin) omega 7-wrm-lmw-fish oil 1,000 mg 1 cap PO DAILY 09/24/24 05/08/25 01/21/25 History (120 mg-180 mg) capsule (Fish Oil) semaglutide 1 ml subcut .once a week 09/24/24 05/08/25 01/21/25 History testosterone cypionate 100 mg/mL 35 mg IM .twice a week 09/24/24 05/08/25 01/18/25 History intramuscular oil (Depo-Testosterone) Allergies Allergy/AdvReac Type Severity Reaction Status Date / Time No Known Allergies Allergy Unknown Verified 05/08/25 15:16 Review of Systems Review of Systems: CONSTITUTIONAL: Denies fever, chills, or sweats. EYES: Denies visual changes, redness, or discharge. Positive right eye irritation. ENT: Denies rhinorrhea, congestion, sore throat, or otalgia. CARDIOVASCULAR: Denies chest pain, palpitations, or edema. RESPIRATORY: Denies cough or dyspnea. GASTROINTESTINAL: Denies abdominal pain, nausea, vomiting, or diarrhea. GENITOURINARY: Denies dysuria or hematuria. SKIN: Denies rash or itching. MUSCULOSKELETAL: Denies back pain, joint pain, or myalgia. NEUROLOGIC: Denies headache, numbness, or weakness. PSYCHIATRIC: Denies anxiety or depression. [facility] Past Medical History Medical History Personal history of adenomatous and serrated colon polyps Plantar fascial fibromatosis of left foot Abnormal liver function tests Abnormal liver enzymes Prediabetes Mixed hyperlipidemia Essential (primary) hypertension Surgical History Surgical History History of laparoscopic appendectomy 01/22/2025 Laparoscopic appendectomy History of ankle surgery Family History Family History Mother Diabetes mellitus Father Cerebrovascular accident Diabetes mellitus Heart disease Sibling Acute myocardial infarction Had heart attack at age 44 Other Family history of cardiovascular disease Hypertension Social History Social History Smoking status: Never smoker Alcohol intake: current Drinks per week: 2 Alcohol use details: Weekends Substance use: never Substance use type: does not use Do You Feel Safe in your Home?: Yes Lack of Transportation: No Lack of Food: Never True Current Housing: I Have Housing Concerned About Future Housing: No Difficulty Paying Gas/Electric Bills: No Difficulty Paying for Meds: No Currently Unemployed: No Education: Associate Degree Difficulty w/ Childcare or Family Care: No Living arrangements: with family Occupation/Education: occupation Additional occupation/education comments: Sheet metal work Gender identity (if verbalized by the patient): Male Sexual Orientation (if Verbalized by the Patient): Straight or Heterosexual Spiritual care concerns: No Comments At the time of my signature I agree with nursing past medical history, surgical, social, and family history. There is no relevant family history pertinent to the presenting complaint. Exam Narrative: GENERAL: Well-appearing, well-nourished, and in no acute distress. HEAD: Normocephalic, atraumatic. EYES: PERRLA and EOM intact without limitation or complaint of pain, no periorbital soft tissue swelling ,no erythema, warmth or tenderness noted, no obvious deformity. No crusting or swelling. Clear tearing or draining.No photophobia. No nystagmus No FB or lesion on lid eversion. subconjunctival hemorrhage noted to the right eye. Corneas grossly clear, no obvious FB or hyphens/hypopyon. Lids and lashes clear. The right eye was dyed in examined under Wood's lamp and it did show a positive corneal abrasion to the 8:00 a.m. area of the right cornea. ENT: Nares clear, no rhinorrhea or epistaxis. Mucous membranes moist. NECK: Supple. No lymphadenopathy CHEST: Clear to auscultation. No respiratory distress. HEART: Regular rate and rhythm. No murmur heard. Normal peripheral pulses. ABDOMEN: Soft, nontender, nondistended, normal active bowel sounds. EXTREMITIES: Normal range of motion. No edema. SKIN: Warm, dry, no rash. NEURO: No focal deficits. Alert and oriented x3. Course Course Level of Care: Express Care Visit Vital Signs Vital signs: Vital Signs Temperature 36.6 C 05/26/25 16:59 Pulse Rate 89 05/26/25 16:59 Respiratory Rate 16 05/26/25 16:59 Blood Pressure 138/93 H 05/26/25 16:59 Pulse Oximetry 100 05/26/25 16:59 Temperature 36.6 C 05/26/25 16:59 Pulse Rate 89 05/26/25 16:59 Respiratory Rate 16 05/26/25 16:59 Blood Pressure 138/93 H 05/26/25 16:59 Pulse Oximetry 100 05/26/25 16:59 vital signs reviewed. The patient has been informed that they may have pre-hypertension or Hypertension based on a BP reading in the department. I recommend that the patient call the primary care provider listed on their discharge instructions or a physician of their choice this week to arrange follow up for further evaluation of possible pre-hypertension or Hypertension Medical Decision Making MDM Narrative Medical decision making narrative: Plan care patient is discharged home with antibiotic eye ointment for the corneal abrasion. Patient may take Tylenol ibuprofen as needed for pain. Patient aware of plan of care denies any other questions or concerns at this time. Differential Diagnosis Differential Diagnosis: Differential diagnosis: Conjunctivitis, foreign body, corneal ulcer, Keratitis, dendritic lesions, corneal abrasion, very orbital infection, orbital cellulitis, orbital pain, acute narrow angle glaucoma, detached retina, central retinal artery occlusion, complete hyphema, vitreous hemorrhage, optic neuritis, globe disruption Vital Signs Vital Signs: Vital Signs Temperature 36.6 C 05/26/25 16:59 Pulse Rate 89 05/26/25 16:59 Respiratory Rate 16 05/26/25 16:59 Blood Pressure 138/93 H 05/26/25 16:59 Pulse Oximetry 100 05/26/25 16:59 Temperature 36.6 C 05/26/25 16:59 Pulse Rate 89 05/26/25 16:59 Respiratory Rate 16 05/26/25 16:59 Blood Pressure 138/93 H 05/26/25 16:59 Pulse Oximetry 100 05/26/25 16:59 Critical Care Time Critical Care Time Critical Care Time: No Discharge Plan Discharge Clinical Impression: Abrasion, corneal Qualifiers: Encounter type: initial encounter Laterality: right Qualified Code(s): S05.01XA - Injury of conjunctiva and corneal abrasion without foreign body, right eye, initial encounter Patient Disposition: Home Condition: Stable Instructions: Antibiotic Form, Corneal Abrasion (ED) Additional Instructions: Corneal abrasions will heal in 1-2 days. Keep your eye shut and wearing sunglasses or staying in low light to avoid light sensitivity. Do not touching or rubbing your eye or use a fabric patch (pirate's patch) You may take Tylenol or ibuprofen for pain Follow-up with PCP or educational administration teacher if condition is not improving in 2-3days. Patient Language: [place] Citizen Prescriptions: New erythromycin 5 mg/gram (0.5 %) ointment 1 applic RIGHT EYE DAILY 5 Days Qty: 3.5 0RF No Action semaglutide 1 ml subcut .once a week testosterone cypionate [Depo-Testosterone] 100 mg/mL oil 35 mg IM .twice a week Rx Instructions: as a single dose omega 2-qdx-qen-fish oil [Fish Oil] 1,000 (120-180) mg capsule 1 cap PO DAILY Men's Multivitamin 200-60-600 mcg tablet 1 tablet PO DAILY lisinopril 20 mg tablet 20 mg PO DAILY Qty: 90 1RF Follow-up/Referrals: Forrest Payne MD [Primary Care Provider, [facility]] Time of Disposition: 17:21
== END 2025-05-26 17:23 | disposition home or self-care (01) ==
PROVIDERS: Emergency Provider Nurse Practitioner Family; PCP Family Medicine
DX: S05.01XA Injury of conjunctiva and corneal abrasion without foreign body, right eye, initial encounter (principal); W22.8XXA Striking against or struck by other objects, initial encounter; I10 Essential (primary) hypertension; E78.2 Mixed hyperlipidemia; R73.03 Prediabetes
CPT/HCPCS: 99213; A9270; G0463